=== PATIENT | female | born 1985 | race Caucasian/White ===

== ENCOUNTER 2016-04-20 08:11 | Emergency (ER) | payer MEDICAID ==
[2016-04-20] MEDS ORDERED: DEXAMETHASONE 4 MG TABLET PO ONE (10:31)
--- NOTE | 2016-04-20 10:53 | ER Document Report ---
ED General - General Chief Complaint: Pain All Over Stated Complaint: BODY PAIN TRAVEL OUTSIDE OF THE [place] IN LAST 30 DAYS: No - HPI Patient complains to provider of: diffuse myalgias feeling unwell Notes: Patient coming in for diffuse myalgias feeling unwell for the last 3 days also states having sinus congestion. Denies fevers chills nausea vomiting diarrhea. Patient denies any recent travel recent antibiotics. - Related Data Allergies/Adverse Reactions: Sulfa (Sulfonamide Antibiotics) Allergy (Mild, Verified 04/20/16 08:16) Generalized rash Past Medical History - Social History Smoking Status: Never Smoker Chew tobacco use (# tins/day): No Frequency of alcohol use: None Family History: Reviewed & Not Pertinent Patient has suicidal ideation: No Patient has homicidal ideation: No Pulmonary Medical History: Reports: Hx Asthma Renal/ Medical History: Denies: Hx Peritoneal Dialysis Past Surgical History: Reports: Hx Section - Immunizations Hx Diphtheria, Pertussis, Tetanus Vaccination: Yes Review of Systems - Review of Systems Constitutional: Malaise - Feeling unwell EENT: No symptoms reported Cardiovascular: No symptoms reported Respiratory: No symptoms reported Gastrointestinal: No symptoms reported Genitourinary: No symptoms reported Female Genitourinary: No symptoms reported Musculoskeletal: Muscle pain Skin: No symptoms reported Hematologic/Lymphatic: No symptoms reported Neurological/Psychological: No symptoms reported -: Yes All other systems reviewed and negative Physical Exam - Vital signs Interpretation: Normal - General General appearance: Appears well, Alert - HEENT Head: Normocephalic, Atraumatic Eyes: Normal Conjunctiva: Normal Cornea: Normal Extraocular movements intact: Yes Eyelashes: Normal Pupils: PERRL Ears: Normal External canal: Normal Tympanic membrane: Normal Nasal: Normal Mouth/Lips: Normal Pharynx: Normal Neck: Normal - Respiratory Respiratory status: No respiratory distress Chest status: Nontender Breath sounds: Normal Chest palpation: Normal - Cardiovascular Rhythm: Regular Heart sounds: Normal auscultation Murmur: No - Abdominal Inspection: Normal Distension: No distension Bowel sounds: Normal Tenderness: Nontender Organomegaly: No organomegaly - Back Back: Normal, Nontender - Extremities General upper extremity: Normal inspection, Nontender, Normal color, Normal ROM , Normal temperature General lower extremity: Normal inspection, Nontender, Normal color, Normal ROM , Normal temperature, Normal weight bearing. No: Rosaline's sign - Neurological Neuro grossly intact: Yes Cognition: Normal Orientation: AAOx4 [place] Coma Scale Eye Opening: Spontaneous [place] Coma Scale Verbal: Oriented [place] Coma Scale Motor: Obeys Commands [place] Coma Scale Total: 15 Speech: Normal Motor strength normal: LUE, RUE, LLE, RLE Sensory: Normal - Psychological Associated symptoms: Normal affect, Normal mood - Skin Skin Temperature: Warm Skin Moisture: Dry Skin Color: Normal Course - Re-evaluation Re-evalutation: 04/20/16 14:48 Patient more likely presents with a viral etiology. No critical etiology seen on physical examination. Patient was encouraged to drink plenty of fluids take Tylenol Motrin for body pains patient was given a dose of Decadron for her sore throat. Discharge - Discharge Clinical Impression: Viral illness Condition: Good Disposition: HOME, SELF-CARE Instructions: Viral Syndrome ([facility]), Fever ([facility]) Additional Instructions: Continue to take Tylenol Motrin for your pain and fever. Follow-up with your primary care physician. Follow-up with your primary care physician in one week.
== END 2016-04-20 11:02 | disposition home or self-care (01) ==
LOC: ER 08:11
DX: M79.1 Myalgia (principal); R53.81 Other malaise; B34.9 Viral infection, unspecified; J45.909 Unspecified asthma, uncomplicated; Z88.2 Allergy status to sulfonamides
CPT/HCPCS: 99283; 87070; 87880; 87804; J3490

== ENCOUNTER 2016-10-12 10:43 | Emergency (ER) | payer SELFPAY ==
[2016-10-12] MEDS ORDERED: IBUPROFEN 800 MG TABLET PO ONE (11:16)
--- NOTE | 2016-10-12 11:21 | ER Document Report ---
ED Extremity Problem, Lower - General Chief Complaint: Knee Injury Stated Complaint: POSSIBLE KNEE INJURY Time Seen by Provider: 10/12/16 11:01 Mode of Arrival: Ambulatory Information source: Patient Notes: 31-year-old female presents to ED for pain to the right knee times a week. She states she had a back injury about 4 years ago and has not had this much problem until the last week. She states that she does not remember any fall or injury within the last week but the pain is getting pretty bad. She reports she went to urgent care for cellulitis behind her right ear and was given Keflex for 10 days. She states she completed Keflex and now the lump behind her ear has come back. TRAVEL OUTSIDE OF THE [place] IN LAST 30 DAYS: No - HPI Patient complains to provider of: Injury, Pain, Swelling Location: Knee - Right knee, Occurred: Last week Onset/Duration: Gradual Quality of pain: Sharp, Throbbing Severity: Moderate Pain Level: 3 Recent injury: No Associated symptoms: Painful ambulation Exacerbated by: Movement, Walking Relieved by: Nothing - Related Data Allergies/Adverse Reactions: Sulfa (Sulfonamide Antibiotics) Allergy (Mild, Verified 10/12/16 11:44) Generalized rash Past Medical History - General Information source: Patient - Social History Smoking Status: Former Smoker Cigarette use (# per day): No Chew tobacco use (# tins/day): No Smoking Education Provided: No Frequency of alcohol use: None Drug Abuse: None Occupation: mom Lives with: Family Family History: Arthritis, CAD, COPD, CVA, DM, Hyperlipidemia, Hypertension, Malignancy, Thyroid Disfunction Patient has suicidal ideation: No Patient has homicidal ideation: No - Past Medical History Cardiac Medical History: Reports: None Pulmonary Medical History: Reports: Hx Asthma EENT Medical History: Reports: None Neurological Medical History: Reports: None Endocrine Medical History: Reports: None Renal/ Medical History: Reports: None Malignancy Medical History: Reports: None GI Medical History: Reports: None Musculoskeltal Medical History: Reports Hx Musculoskeletal Deformity, Reports Hx Musculoskeletal Trauma Skin Medical History: Reports None Psychiatric Medical History: Reports: Hx Anxiety, Hx Depression, Hx Post Traumatic Stress Disorder Traumatic Medical History: Reports: Hx Fractures - The ankles lives with both knees fingers and toes Infectious Medical History: Reports: None Past Surgical History: Reports: Hx Section, Other - All lymph nodes removed from left groin - Immunizations Hx Diphtheria, Pertussis, Tetanus Vaccination: Yes Review of Systems - Review of Systems Constitutional: No symptoms reported EENT: No symptoms reported Cardiovascular: No symptoms reported Respiratory: No symptoms reported Gastrointestinal: No symptoms reported Genitourinary: No symptoms reported Female Genitourinary: No symptoms reported Musculoskeletal: Joint pain - Right knee pain, Muscle pain, Muscle stiffness Skin: No symptoms reported Hematologic/Lymphatic: No symptoms reported Neurological/Psychological: No symptoms reported -: Yes All other systems reviewed and negative Physical Exam - Vital signs Vitals: Temp Pulse Resp BP Pulse Ox 98.5 F 55 L 16 142/87 H 99 10/12/16 10:47 10/12/16 10:47 10/12/16 10:47 10/12/16 10:47 10/12/16 10:47 Interpretation: Normal - General General appearance: Appears well, Alert - HEENT Head: Normocephalic, Atraumatic Eyes: Normal Pupils: PERRL - Respiratory Respiratory status: No respiratory distress Chest status: Nontender Breath sounds: Normal Chest palpation: Normal - Cardiovascular Rhythm: Regular Heart sounds: Normal auscultation Murmur: No - Abdominal Inspection: Normal Distension: No distension Bowel sounds: Normal Tenderness: Nontender Organomegaly: No organomegaly - Back Back: Normal, Nontender - Extremities General upper extremity: Normal inspection, Nontender, Normal color, Normal ROM , Normal temperature General lower extremity: Normal inspection, Nontender, Normal color, Normal ROM , Normal temperature, Normal weight bearing. No: Rosaline's sign Knee: Tender, Pain with ROM, Patellar tendon intact, Tender joint line. No: Abrasion, Deformity, Dislocation, Drawer's test instability, Ecchymosis, Instability, Joint effusion, Laceration, Laxity with valgus stress, Laxity with varus stress, Popliteal fossa tender, Unable to bear weight - Neurological Neuro grossly intact: Yes Cognition: Normal Orientation: AAOx4 [place] Coma Scale Eye Opening: Spontaneous [place] Coma Scale Verbal: Oriented [place] Coma Scale Motor: Obeys Commands [place] Coma Scale Total: 15 Speech: Normal Motor strength normal: LUE, RUE, LLE, RLE Sensory: Normal - Psychological Associated symptoms: Normal affect, Normal mood - Skin Skin Temperature: Warm Skin Moisture: Dry Skin Color: Normal Course - Re-evaluation Re-evalutation: 10/12/16 14:43 patient treated with ibuprofen ice pack and hiram wrap to right knee. patient discharged home to follow up with orthopedics - Vital Signs Vital signs: Temp Pulse Resp BP Pulse Ox 98.5 F 49 L 16 137/93 H 99 10/12/16 10:47 10/12/16 14:47 10/12/16 14:47 10/12/16 14:47 10/12/16 14:47 - Diagnostic Test Radiology reviewed: Image reviewed, Reports reviewed Procedures - Immobilization Right knee Time completed: 14:55 Immobilizer type: Hiram wrap Performed by: PCT Spinal immobilization: C-collar placed Post-Proc Neuro Vasc Exam: Normal Alignment checked and good: Yes Discharge - Discharge Clinical Impression: Knee injury Qualifiers: Encounter type: initial encounter Laterality: right Qualified Code(s): S89.91XA - Unspecified injury of right lower leg, initial encounter Condition: Stable Disposition: HOME, SELF-CARE Additional Instructions: HIRAM WRAP: A compression dressing (hiram wrap) has been placed. This helps hold the area still. It limits swelling and internal bleeding. The wrap should be comfortably snug -- not tight. You should feel a sense of pressure, but not severe pain under the wrap. Unless the physician tells you otherwise, you can adjust the wrap for comfort. If the wrap causes symptoms suggesting it's too tight -- uncomfortable pressure, swelling or discoloration beyond the wrap, numbness, or severe pain - - you must loosen the wrap. If these symptoms don't resolve promptly, return for re-evaluation. SUSPECTED INTERNAL KNEE INJURY: The examiner of your injured knee suspects an internal injury to the cartilage or internal ligaments. This must be further investigated by an customer acquisition specialist. The knee should be protected, ice packed, and elevated while awaiting your follow-up exam by the orthopedist. If there is severe swelling, severe pain, or any new symptoms while awaiting your exam, you should call the orthopedist. (If he/she is un ICE & ELEVATION: Apply ice packs frequently against the painful area. Many different schedules are recommended, such as "20 minutes on, 20 minutes off" or "one hour ice, two hours rest." If you need to work, you may need to go longer between ice treatments. You should plan to have the area ice packed AT LEAST one- fourth of the time. The ice should be applied over the wrap, tape, or splint, or over a layer of cloth -- not directly against the skin. Some ice bags have a built-in cloth and can be put directly on the skin. Your injured part should be elevated as much as possible over the next 48 hours. Try to keep the injury above the level of the heart. Avoid use of the injured area. Elevation and rest will decrease the swelling. USE OF [id number] IBUPROFEN: Ibuprofen (Advil, Nuprin, Medipren, Motrin IB) is a medication for fever and pain control. In addition, it has anti- inflammatory effects which may be beneficial, especially in the treatment of injuries. It's best to take ibuprofen with food. Persons with ulcer disease or allergy to aspirin should notify their physician of this before taking ibuprofen. Ibuprofen can be given every four to six hours, for a total of four doses daily. Age Pain or fever dose Antiinflammatory dose 6-8 yr 200 mg (1 tab) 200 mg (1 tab) 9-11 yr 200 mg (1 tab) 200-400 mg (1-2 tab) 11-14 yr 200-400 mg (1-2 tab) 400 mg (2 tab) 15-adult 400 mg (2 tab) 600 mg (3 tab) FOLLOW-UP CARE: If you have been referred to a physician for follow-up care, call the physician s office for an appointment as you were instructed or within the next two days. If you experience worsening or a significant change in your symptoms, notify the physician immediately or return to the Emergency Department at any time for re-evaluation. Prescriptions: Ibuprofen 800 mg PO Q8HP PRN #20 tablet PRN Reason: Forms: Elevated Blood Pressure Referrals: RAFA ALBRIGHT MD [ACTIVE STAFF] - Follow up as needed
[2016-10-12 14:55] VITALS: BP 137/93
--- NOTE | 2016-10-13 15:08 | RADIOLOGY REPORT (SQ) ---
EXAM DESCRIPTION: KNEE RIGHT 4 VIEWS COMPLETED DATE/TIME: 10/12/2016, 1137 hours REASON FOR STUDY: Pain and swelling COMPARISON: None TECHNIQUE: Right knee four views LIMITATIONS: None FINDINGS: Normal bone density. No suprapatellar knee joint effusion. No acute fracture or malalignment. IMPRESSION: Unremarkable study
== END 2016-10-12 14:58 | disposition home or self-care (01) ==
LOC: ER 10:43
DX: S89.91XA Unspecified injury of right lower leg, initial encounter (principal); X58.XXXA Exposure to other specified factors, initial encounter; M25.561 Pain in right knee; J45.909 Unspecified asthma, uncomplicated; Z88.2 Allergy status to sulfonamides; Z87.891 Personal history of nicotine dependence
CPT/HCPCS: 99283

== ENCOUNTER 2017-05-19 12:50 | Emergency (ER) | payer MEDICAID, OTHER ==
--- NOTE | 2017-05-19 13:26 | ER Document Report ---
ED General - General Mode of Arrival: Ambulatory Information source: Patient TRAVEL OUTSIDE OF THE [place] IN LAST 30 DAYS: No - HPI Patient complains to provider of: Chest Pain Onset: This morning Associated symptoms: Other - see notes above - General Chief Complaint: Shortness Of Breath Stated Complaint: SHORTNESS OF BRETH,CHEST PAIN Time Seen by Provider: 05/19/17 13:05 Notes: 32 year old female with history of asthma and anxiety presents to the ED complaining of having tight substernal chest pain that started after running a 5K today. Patient reports that she took 2 puffs of her Albuterol inhaler to no relief. Patient states that she has been drinking a lot of caffeine since she has not been sleeping well due to her snoring and their baby. Patient reports having post-partem depression and increased anxiety that she handles by running. Patient reports that she does not see a counselor for anxiety. (RUFINA TONY) patient states the pain relieves when she is walking around and gets worse when she is sitting still. (MARIA ELENA VITAL) - Related Data Allergies/Adverse Reactions: Sulfa (Sulfonamide Antibiotics) Allergy (Mild, Verified 05/19/17 13:13) Generalized rash Past Medical History - General Information source: Patient - Social History Smoking Status: Former Smoker Chew tobacco use (# tins/day): No Frequency of alcohol use: Rare Drug Abuse: None Family History: Arthritis, CAD, COPD, CVA, DM, Hyperlipidemia, Hypertension, Malignancy, Thyroid Disfunction Patient has suicidal ideation: No Patient has homicidal ideation: No Pulmonary Medical History: Reports: Hx Asthma Renal/ Medical History: Denies: Hx Peritoneal Dialysis Musculoskeltal Medical History: Reports Hx Musculoskeletal Deformity, Reports Hx Musculoskeletal Trauma Psychiatric Medical History: Reports: Hx Anxiety, Hx Depression, Hx Post Traumatic Stress Disorder Traumatic Medical History: Reports: Hx Fractures - The ankles lives with both knees fingers and toes Past Surgical History: Reports: Hx Section, Other - All lymph nodes removed from left groin - Immunizations Hx Diphtheria, Pertussis, Tetanus Vaccination: Yes Review of Systems - Review of Systems Constitutional: No symptoms reported EENT: No symptoms reported Cardiovascular: See HPI, Chest pain Respiratory: No symptoms reported Gastrointestinal: No symptoms reported Genitourinary: No symptoms reported Female Genitourinary: No symptoms reported Musculoskeletal: No symptoms reported Skin: No symptoms reported Hematologic/Lymphatic: No symptoms reported Neurological/Psychological: No symptoms reported -: Yes All other systems reviewed and negative Physical Exam - Vital signs Vitals: Temp Pulse Resp BP Pulse Ox 98.1 F 61 18 151/86 H 100 05/19/17 13:04 05/19/17 13:04 05/19/17 13:04 05/19/17 13:04 05/19/17 13:04 - Notes Notes: GENERAL: Alert, interacts well. Intermittent tearful and anxiety, but calms easily. HEAD: Normocephalic, atraumatic. EYES: Pupils equal, round, and reactive to light. Extraocular movements intact. ENT: Oral mucosa moist, tongue midline. NECK: Full range of motion. Supple. Trachea midline. LUNGS: Clear to auscultation bilaterally, no wheezes, rales, or rhonchi. No respiratory distress. HEART: Regular rate and rhythm. No murmurs, gallops, or rubs. CHEST: Small firm nodule to the medial aspect of the right breast. No fluctuance or sign of active drainage. No tenderness to palpation. EXTREMITIES: Moves all 4 extremities spontaneously. No edema, radial pulses 2/4 bilaterally. No cyanosis. NEUROLOGICAL: Alert and oriented x3. Normal speech. PSYCH: Normal affect, normal mood. SKIN: Warm, dry, normal turgor. (RUFINA TONY) Course - Re-evaluation Re-evalutation: 05/19/17 14:13 No wheezing, no respiratory distress, symptoms resolved when I am talking to her and she calms down. This combined with the fact that her symptoms get worse when she is sitting still and better when she was walking around point more towards anxiety and away from an asthma attack. Patient does have quite a few life stressors at this time, is not taking any sort of antidepressant or antianxiety medication, admits history of severe anxiety and PTSD. Discussed with patient that she is safe to continue working out, EKG is nonischemic and does not have any concerning blocks, recommend follow-up with outpatient therapist for counseling. Patient is provide resource sheet and is agreeable to this plan. Patient was offered Vistaril, states she had his prescription for this at home and will take a dose of Atarax here as it is slightly lower strength. Patient was counseled regarding sleep hygiene and discharged to home. (MARIA ELENA VITAL) - Vital Signs Vital signs: Temp Pulse Resp BP Pulse Ox 97.8 F 68 16 128/78 H 100 05/19/17 14:28 05/19/17 14:28 05/19/17 14:28 05/19/17 14:28 05/19/17 14:28 - EKG Interpretation by Me Additional EKG results interpreted by me: 05/19/17 14:16 EKG shows sinus rhythm rate 74, normal axis, normal intervals, no ST segment elevations or depressions, there are some inverted P waves in lead III and aVF and inverted T waves in V2, these are isolated per my interpretation. (MARIA ELENA VITAL) Discharge - Discharge Clinical Impression: Anxiety, Chest pain due to psychological stress, Problems related to lack of adequate sleep, Elevated blood pressure reading Condition: Stable Disposition: HOME, SELF-CARE Additional Instructions: Please use the resource sheet I gave you to arrange a follow-up appointment with a counselor or therapist. Please remember the education and gave you regarding sleep hygiene including going to sleep at the same time every night waking up at the same time every morning, avoiding naps fall possible, putting down any light emitting devices at least 2 hours before bedtime and avoiding caffeine after 2:00 in the afternoon. You may use the Vistaril prescription that you already have at home in the evenings to help with sleep. You should also encourage your to see a physician about his snoring and possibly have a sleep study performed. Referrals: [facility] [Provider Group] - Follow up in 1 month Scribe Attestation: 05/19/17 18:14 I personally performed the services described in the documentation, reviewed and edited the documentation which was dictated to the scribe in my presence, and it accurately records my words and actions. (MARIA ELENA VITAL) Scribe Documentation - Scribe Written by Liyah:: Liyah Santiago, 05/19/2017 [id number] acting as scribe for :: Coral
[2017-05-19] MEDS ORDERED: HYDROXYZINE PAMOATE 25 MG CAPSULE PO ONE (13:29)
[2017-05-19] MEDS ORDERED: HYDROXYZINE HCL 10 MG TABLET PO ONE (13:38)
[2017-05-19 14:30] VITALS: BP 128/78
--- NOTE | 2017-05-19 15:18 | EKG REPORT ---
SEVERITY:- NORMAL ECG - SINUS RHYTHM : Confirmed by: Genia Tomlinson 19-May-2017 15:17:42
== END 2017-05-19 14:28 | disposition home or self-care (01) ==
LOC: ER 12:50
DX: F41.9 Anxiety disorder, unspecified (principal); R07.89 Other chest pain; F43.9 Reaction to severe stress, unspecified; J45.909 Unspecified asthma, uncomplicated; R03.0 Elevated blood-pressure reading, without diagnosis of hypertension; N63.0 Unspecified lump in unspecified breast; Z88.2 Allergy status to sulfonamides; Z87.891 Personal history of nicotine dependence; Z72.820 Sleep deprivation
CPT/HCPCS: 93005; 93010; 99284

== ENCOUNTER → 2018-03-03 | Outpatient (CLI) | payer OTHER ==
--- NOTE | 2018-03-03 16:54 | RADIOLOGY REPORT (SQ) ---
EXAM DESCRIPTION: CHEST 2 VIEWS COMPLETED DATE/TIME: 03/03/2018 4:36 pm REASON FOR STUDY: SHORTNESS OF BREATH COMPARISON: None. TECHNIQUE: Frontal and lateral radiographic views of the chest acquired. NUMBER OF VIEWS: Two view. LIMITATIONS: None. FINDINGS: LUNGS AND PLEURA: Lungs are hyperinflated potentially reflecting asthma. No infiltrates. No pneumothorax. No pleural fluid. MEDIASTINUM AND HILAR STRUCTURES: No masses or contour abnormalities. HEART AND VASCULAR STRUCTURES: Heart normal size. No evidence for failure. BONES: No acute findings. HARDWARE: None in the chest. OTHER: No other significant finding. IMPRESSION: Hyperinflated but otherwise clear lungs. TECHNICAL DOCUMENTATION: JOB ID: [id number] [employer]- All Rights Reserved Reading location - IP/workstation name: [email or web address]
== END ==
LOC: RAD 16:20
PROVIDERS: ATTEND Nurse Practitioner Family
DX: R06.02 Shortness of breath (principal)
CPT/HCPCS: 71046

== ENCOUNTER 2018-03-04 15:24 | Emergency (ER) | payer OTHER ==
--- NOTE | 2018-03-04 16:47 | ER Document Report ---
ED Medical Screen (RME) - General Chief Complaint: Shortness Of Breath Stated Complaint: HEADACHE, DIFFICULTY BREATHING Time Seen by Provider: 03/04/18 16:37 Notes: RAPID MEDICAL EVALUATION DISCLOSURE I have seen this patient as part of a Rapid Medical Evaluation and, if applicable, placed any initially appropriate orders. The patient will be seen and fully evaluated, including a full history and physical exam, by a provider (in Main ED or Fast Track) when a room becomes available. 32-year-old female here with complaints of cough and nasal drainage ongoing for the past few weeks however states that what is more concerning to her is the midsternal chest pain palpitations and shortness of breath that she has been having. She went to see her PCP yesterday however she was told that she had possible pneumonia and was prescribed inhaler azithromycin and steroids. She had a chest x-ray yesterday that was "clear". It was performed here. She states that she is not getting any better despite only having been on the prescribed medications for a very short amount of time. She is afraid it is due to her heart. She reports that she has a history of "arrhythmia". EXAM CTAB RRR TRAVEL OUTSIDE OF THE [place] IN LAST 30 DAYS: No - Related Data Allergies/Adverse Reactions: Sulfa (Sulfonamide Antibiotics) Allergy (Mild, Verified 03/04/18 16:35) Generalized rash Past Medical History Pulmonary Medical History: Reports: Hx Asthma Renal/ Medical History: Denies: Hx Peritoneal Dialysis Musculoskeltal Medical History: Reports Hx Musculoskeletal Deformity, Reports Hx Musculoskeletal Trauma Psychiatric Medical History: Reports: Hx Anxiety, Hx Depression, Hx Post Traumatic Stress Disorder Traumatic Medical History: Reports: Hx Fractures - The ankles lives with both knees fingers and toes Past Surgical History: Reports: Hx Section, Other - All lymph nodes removed from left groin - Immunizations Hx Diphtheria, Pertussis, Tetanus Vaccination: Yes Physical Exam - Vital signs Vitals: Temp Pulse Resp BP Pulse Ox 98.4 F 55 L 20 146/75 H 99 03/04/18 15:30 03/04/18 15:30 03/04/18 15:30 03/04/18 15:30 03/04/18 15:30 Course - Vital Signs Vital signs: Temp Pulse Resp BP Pulse Ox 98.4 F 55 L 20 146/75 H 99 03/04/18 15:30 03/04/18 15:30 03/04/18 15:30 03/04/18 15:30 03/04/18 15:30 Doctor's Discharge - Discharge Referrals: JACK CHRISTINE MD [Primary Care Provider] - Follow up as needed
[2018-03-04 17:39] LABS: ABSOLUTE MONOCYTES (AUTO) 0.2 10^3/uL (0.1-1.4); ABSOLUTE NEUT (AUTO) 8.9 10^3/uL (1.7-8.2); HEMATOCRIT 42.4 % (36.0-47.0); HEMOGLOBIN 14.4 g/dL (12.0-15.5); MEAN CORPUSCULAR HEMOGLOBIN 30.9 pg (27.0-33.4); MEAN CORPUSCULAR HGB CONC 33.9 g/dL (32.0-36.0); MEAN CORPUSCULAR VOLUME 91 fl (80-97); MONOCYTES % (AUTO) 2.3 % (3-13); PLATELET COUNT 251 10^3/uL (150-450); RED BLOOD COUNT 4.66 10^6/uL (3.72-5.28); RED CELL DISTRIBUTION WIDTH 13.7 % (11.5-14.0); SEGMENTED NEUTROPHILS % (AUTO) 87.7 % (42-78); TOTAL CELLS COUNTED % (AUTO) 100 %; WHITE BLOOD COUNT 10.1 10^3/uL (4.0-10.5)
[2018-03-04 17:52] LABS: ALANINE AMINOTRANSFERASE 30 U/L (9-52); ALBUMIN 5.2 g/dL (3.5-5.0); ALKALINE PHOSPHATASE 51 U/L (38-126); ANION GAP 11 (5-19); ASPARTATE AMINO TRANSFERASE 38 U/L (14-36); BILIRUBIN,DIRECT 0.2 mg/dL (0.0-0.4); BILIRUBIN,TOTAL 0.5 mg/dL (0.2-1.3); BLOOD UREA NITROGEN 16 mg/dL (7-20); CALCIUM 9.7 mg/dL (8.4-10.2); CARBON DIOXIDE 23 mmol/L (22-30); CHLORIDE 106 mmol/L (98-107); GLUCOSE 136 mg/dL (75-110); POTASSIUM 4.3 mmol/L (3.6-5.0); SODIUM 139.9 mmol/L (137-145); TOTAL PROTEIN 8.5 g/dL (6.3-8.2)
[2018-03-04] MEDS ORDERED: IPRATROPIUM/ALBUTEROL 0.5-2.5 MG/3 ML AMPUL NEB ONE (19:10)
--- NOTE | 2018-03-04 19:10 | ER Document Report ---
ED General - General Chief Complaint: Shortness Of Breath Stated Complaint: HEADACHE, DIFFICULTY BREATHING Time Seen by Provider: 03/04/18 16:37 Mode of Arrival: Ambulatory Information source: Patient Notes: 32-year-old female presents emergency department with complaints of cough, nasal drainage over the past few weeks. She went to the urgent care and was diagnosed with pneumonia. She was started on azithromycin and steroids. Patient states that she did have an x-ray of her chest done that was read as "clear". Patient states that she is not getting any better despite being on the medications. She states that she is also been having some intermittent chest pain that is located midsternal without any radiation. She is having some associated left arm pain with the chest pain. She denies any alleviating or exacerbating factors. She states that she is not having any chest pain currently. Patient denies any hypertension, hyperlipidemia, diabetes, coronary artery disease, history of coronary artery disease in her family, smoking. Patient denies any recent travel, recent surgeries, calf pain, calf swelling, history of DVT or PE, history of hormone use. TRAVEL OUTSIDE OF THE [place] IN LAST 30 DAYS: No - HPI Onset: Last week Onset/Duration: Intermittent, Persistent Quality of pain: Achy Severity: Mild Pain Level: Denies Associated symptoms: Chest pain, Nonproductive cough Exacerbated by: Denies Relieved by: Denies Similar symptoms previously: Yes Recently seen / treated by doctor: Yes - Related Data Allergies/Adverse Reactions: Sulfa (Sulfonamide Antibiotics) Allergy (Mild, Verified 03/04/18 16:35) Generalized rash Past Medical History - General Information source: Patient - Social History Smoking Status: Former Smoker Chew tobacco use (# tins/day): No Frequency of alcohol use: None Drug Abuse: None Family History: Arthritis, CAD, COPD, CVA, DM, Hyperlipidemia, Hypertension, Malignancy, Thyroid Disfunction Patient has suicidal ideation: No Patient has homicidal ideation: No - Past Medical History Cardiac Medical History: Reports: Hx Hypertension Pulmonary Medical History: Reports: Hx Asthma Renal/ Medical History: Denies: Hx Peritoneal Dialysis Musculoskeletal Medical History: Reports Hx Musculoskeletal Deformity, Reports Hx Musculoskeletal Trauma Psychiatric Medical History: Reports: Hx Anxiety, Hx Depression, Hx Post Tr aumatic Stress Disorder Traumatic Medical History: Reports: Hx Fractures - The ankles lives with both knees fingers and toes Past Surgical History: Reports: Hx Section, Other - All lymph nodes removed from left groin - Immunizations Hx Diphtheria, Pertussis, Tetanus Vaccination: Yes Review of Systems - Review of Systems Constitutional: No symptoms reported EENT: No symptoms reported Cardiovascular: Chest pain Respiratory: Short of breath Gastrointestinal: No symptoms reported Genitourinary: No symptoms reported Female Genitourinary: No symptoms reported Musculoskeletal: No symptoms reported Skin: No symptoms reported Hematologic/Lymphatic: No symptoms reported Neurological/Psychological: No symptoms reported -: Yes All other systems reviewed and negative Physical Exam - Vital signs Vitals: Temp Pulse Resp BP Pulse Ox 98.4 F 55 L 20 146/75 H 99 03/04/18 15:30 03/04/18 15:30 03/04/18 15:30 03/04/18 15:30 03/04/18 15:30 - Notes Notes: PHYSICAL EXAMINATION: GENERAL: Well-appearing, well-nourished and in no acute distress. HEAD: Atraumatic, normocephalic. EYES: Pupils equal round and reactive to light, extraocular movements intact, conjunctiva are normal. ENT: Nares patent, oropharynx clear without exudates. Moist mucous membranes. NECK: Normal range of motion, supple without lymphadenopathy LUNGS: Diffuse wheezing. No distress. HEART: Regular rate and rhythm without murmurs ABDOMEN: Soft, nontender, nondistended abdomen. No guarding, no rebound. No masses appreciated. Female : deferred Musculoskeletal: Normal range of motion, no pitting or edema. No cyanosis. NEUROLOGICAL: Cranial nerves grossly intact. Normal speech, normal gait. Normal sensory, motor exams PSYCH: Normal mood, normal affect. SKIN: Warm, Dry, normal turgor, no rashes or lesions noted. Course - Re-evaluation Re-evalutation: 03/04/18 19:09 EKG: Ventricular rate 53, QRS duration 90, QTc 414, normal sinus rhythm. No ST segment elevation or depression. 03/04/18 20:52 EKG: Ventricular rate 56, GA interval 180, castration 90, QTc 425, sinus rhythm. No ST segment elevation or depression. 03/04/18 21:36 Labs and imaging obtained. No acute process identified on the chest x-ray. 2 sets of cardiac enzymes were done and normal. 2 EKGs were normal. D-dimer came back within normal limits. I will discharge the patient home. Patient instruct ed to follow-up with her primary care physician this week, to continue taking the azithromycin and steroids, and to return to the emergency department for any worsening symptoms. Patient is agreeable with plan of care. - Vital Signs Vital signs: Temp Pulse Resp BP Pulse Ox 99.5 F 55 L 18 147/79 H 100 03/04/18 19:06 03/04/18 19:06 03/04/18 19:06 03/04/18 19:06 03/04/18 19:06 - Laboratory Result Diagrams: 03/04/18 17:00 03/04/18 17:00 Laboratory results interpreted by me: 03/04/18 03/04/18 17:00 17:00 Seg Neutrophils % 87.7 H Lymphocytes % 10.0 L Monocytes % 2.3 L Absolute Neutrophils 8.9 H Glucose 136 H AST 38 H Total Protein 8.5 H Albumin 5.2 H Discharge - Discharge Clinical Impression: Chest pain Qualifiers: Chest pain type: unspecified Qualified Code(s): R07.9 - Chest pain, unspecified Condition: Good Disposition: HOME, SELF-CARE Instructions: Chest Pain of Unclear Cause ([facility]) Referrals: JACK CHRISTINE MD [ACTIVE STAFF] - Follow up as needed WOO WELLS MD [EMERITUS] - Follow up as needed
--- NOTE | 2018-03-04 19:27 | RADIOLOGY REPORT (SQ) ---
EXAM DESCRIPTION: CHEST SINGLE VIEW COMPLETED DATE/TIME: 03/04/2018 7:14 pm REASON FOR STUDY: cough, chest pain COMPARISON: 03/03/2018 EXAM PARAMETERS: NUMBER OF VIEWS: One view. TECHNIQUE: Single frontal radiographic view of the chest acquired. RADIATION DOSE: NA LIMITATIONS: None. FINDINGS: LUNGS AND PLEURA: No opacities, masses or pneumothorax. No pleural effusion. MEDIASTINUM AND HILAR STRUCTURES: No masses. Contour normal. HEART AND VASCULAR STRUCTURES: Heart normal in size. Normal vasculature. BONES: No acute findings. HARDWARE: None in the chest. OTHER: No other significant finding. IMPRESSION: NO ACUTE RADIOGRAPHIC FINDING IN THE CHEST. TECHNICAL DOCUMENTATION: JOB ID: [id number] [employer]- All Rights Reserved Reading location - IP/workstation name: [email or web address]
--- NOTE | 2018-03-04 20:36 | EKG REPORT ---
SEVERITY:- ABNORMAL ECG - SINUS RHYTHM ABNORMAL T INVERSION ANTERIOR LEADS : Confirmed by: Rasheed Longoria MD 04-Mar-2018 20:36:15
[2018-03-04] MEDS ORDERED: ACETAMINOPHEN 325 MG TABLET PO ONE (21:29)
[2018-03-04 22:12] VITALS: BP 133/80
--- NOTE | 2018-03-05 07:14 | EKG REPORT ---
SEVERITY:- ABNORMAL ECG - SINUS RHYTHM NONSPECIFIC T ABNORMALITIES, ANTERIOR LEADS : Confirmed by: Rasheed Longoria MD 05-Mar-2018 07:13:13
== END 2018-03-04 22:12 | disposition home or self-care (01) ==
LOC: ER 15:24
DX: R07.9 Chest pain, unspecified (principal); R06.02 Shortness of breath; R05 Cough; R09.89 Other specified symptoms and signs involving the circulatory and respiratory systems; M79.605 Pain in left leg; Z87.891 Personal history of nicotine dependence; I10 Essential (primary) hypertension; J45.909 Unspecified asthma, uncomplicated
CPT/HCPCS: 93005; 94640; 99285; 36415; 83735; 84443; 85025; 81025; 80053; 84484; 85379; 71045; 93010; J7620